=== PATIENT | female | born 1965 | race African-American/Black ===

== ENCOUNTER 2020-06-16 19:57 | Emergency (ER) | payer SELFPAY ==
[~2020-06-16] VITALS: Ht 170.2 cm; Wt 137.0 kg
[2020-06-16] MEDS ORDERED: CARISOPRODOL 350 MG TABLET PO ONE (22:45)
[2020-06-16] MEDS ORDERED: KETOROLAC 30MG/ML VIAL IM ONE (22:45)
[2020-06-16 23:39] VITALS: BP 135/69
== END 2020-06-17 01:21 | disposition home or self-care (01) ==
LOC: ER 19:57
DX: S76.012A Strain of muscle, fascia and tendon of left hip, initial encounter (principal); W18.39XA Other fall on same level, initial encounter; Y93.89 Activity, other specified; Y92.89 Other specified places as the place of occurrence of the external cause; Y99.8 Other external cause status; K21.9 Gastro-esophageal reflux disease without esophagitis; I10 Essential (primary) hypertension; Z90.710 Acquired absence of both cervix and uterus; Z88.1 Allergy status to other antibiotic agents
CPT/HCPCS: 73502; 96372; 99283; J1885